=== PATIENT | male | born 1945 | race Caucasian/White ===

== ENCOUNTER → 2017-09-26 | Outpatient (CLI) | payer MEDICARE, OTHER ==
--- NOTE | 2017-09-27 07:48 | Diagnostic Imaging Report ---
Exam: Lumbar spine MRI without IV contrast History: Fall, right-sided back pain Comparison studies: None Technique: Sagittal, axial coronal T2, sagittal T1, sagittal STIR, axial T2 FS and axial oblique proton density. Intravenous contrast: None Findings: Several pulse sequences are somewhat limited by artifacts related to patient motion. Number of lumbar vertebral bodies: 5. Alignment: Normal lumbar lordosis. Mild lumbar curvature convex to the left. Soft tissues: No T2 hyperintense inflammatory changes. Paraspinal muscles: No signal abnormalities. Well-preserved. Minimal symmetric atrophy. Lower thoracic cord: Normal in signal and morphology. The tip of the conus is at L1. Cauda equina: No masses. No arachnoiditis. Vertebrae: No compression fractures, infection or neoplasm. Degenerative changes: L1-L2: Mild loss of T2/STIR disc signal. Patent canal and foramina. L2-L3: Moderately degenerated disc on the right due to curvature. Disc osteophyte complex with superimposed right foraminal disc extrusion and facet arthrosis with mild right foraminal stenosis. No significant canal or left foraminal stenosis. L3-L4: Moderately degenerated disc on the right with associated degenerative endplate changes with mild endplate edema due to curvature. Disc osteophyte complex asymmetric to the right, thickened ligamentum flavum and facet arthrosis with mild canal stenosis, moderate right foraminal stenosis and mild left foraminal stenosis. Extra foraminal disc osteophyte complex abuts the exiting right L3 nerve root. L4-L5: Moderately degenerated disc with mixed degenerative endplate changes with minimal endplate edema on the left. Disc osteophyte complex, thickened ligamentum flavum and facet arthrosis with mild canal stenosis moderate left and mild right foraminal stenosis. Disc osteophyte complexes abut the bilateral extraforaminal L4 nerve roots. L5-S1: Mildly degenerated disc. Disc bulge with mild facet arthrosis without significant canal or foraminal stenosis. IMPRESSION: 1. No compression fracture. 2. Multilevel disc degeneration, worse/moderate at L4-L5 and along the concavity of mild lumbar curvature on the right at L2-L3 and at L3-L4 with associated degenerative endplate changes and mild endplate at L3-L4 and to lesser degree at L4-5. 3. Mild degenerative canal stenosis from L2 to L5. 4. Multilevel degenerative foraminal stenosis (worse/moderate on the right at L3-L4 and on the left at L4-5). 5. 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 Signed by: Dr. Naldo Rios M.D. on 09/27/2017 7:45 AM
== END ==
LOC: MRI 15:31
PROVIDERS: ATTEND Family Medicine
DX: M54.9 Dorsalgia, unspecified (principal)
CPT/HCPCS: 72148